=== PATIENT | female | born 1950 | race Caucasian/White ===

== ENCOUNTER → 2020-08-19 09:37 | Outpatient (BNVA) | payer MEDICARE, OTHER, SELFPAY | PROVIDERS: Visit Provider Surgery | DX: Z20.828 Contact with and (suspected) exposure to other viral communicable diseases (principal) | CPT/HCPCS: 87635 ==

== ENCOUNTER 2020-08-24 07:04 | Day surgery (SDC) | payer MEDICARE, OTHER, SELFPAY ==
[2020-08-22 10:47] VITALS: BMI 23.6
[2020-08-24 07:13] VITALS: BP 123/69; PULSE 93; RESP 18; TEMP 36.7; O2SAT 97
--- NOTE | 2020-08-24 07:31 | ANES.PREANE2 ---
Pre-Anesthetic Assessment Pre-Anesthetic Assessment: Height/Weight: Height 1.65 m Weight 64.41 kg Temp Pulse Resp BP Pulse Ox 98.0 F 93 18 123/69 97 08/24/20 07:13 08/24/20 07:13 08/24/20 07:13 08/24/20 07:13 08/24/20 07:13 Preop Diagnosis: Change in bowel movement Proposed Procedure: Operation Date: 08/24/20 08:00 Proposed Procedures p Colonoscopy 77211 R19.4(Not Applicable) - Jn Nowak MD Familial anesthetic complications: PONV Was Beta Glenn taken within 24 hours: N/A Last intake: Intake Last Liquid Date 08/23/20 Last Liquid Time 21:00 Last Solid Date 08/22/20 Last Solid Time 08:00 Social: Social History: No alcohol and No tobacco Exam: Pre-Anes Outpt Exam: alert, oriented x 3, clear to auscultation bilaterally and regular rate & rhythm Airway: Cervical ROM: WNL MP: 4 Dentition: Full GI: GI: GERD Metabolic: Metabolic: DM Musc/skel: Musc/skel: None reported Comments: R shoulder pain - will have patient get in comfortable position before starting anesthestic Anesthetic Plan: ASA status: 2 Anesthesia: MAC Risk of > 500 ml blood loss (7ml/kg in children): No PFSH Anesthesia PFSH: Family History Denies family history of Anesthesia complication Bleeding disorder Social History Smoking and tobacco status: never smoked Alcohol intake: never Adopted: No Caregiver/support person: Yes Lives independently: Yes Household members: spouse Housing: House Marital status: service: No Current occupational status: retired Current occupational exposures/hazards: No Pets and animals: No History of recent travel: No Sexually active: No Current gender identity: Female Fawn/Catholic: Mormonism Data Anesthesia Cardiac Studies: No Data to Display
[2020-08-24] MEDS: sodium chloride 0.9% 1,000 ML 30 ML IV (07:39)
[2020-08-24 07:43] LABS: Glucose Point of Care 166 mg/dL (70-110)
--- NOTE | 2020-08-24 07:55 | W.PM.OPSUD ---
Surgery/Procedure H&P Update DATE OF PROCEDURE: August 24, 2020 DATE H&P PERFORMED: 08/08/20 H&P UPDATE INFORMATION: I have reviewed H&P completed within last 30 days, I have examined patient prior to procedure and No changes to prior documentation PREOP DIAGNOSIS: Change in bowel movement PRIMARY INDICATION FOR PROCEDURE: The same PLANNED PROCEDURE: Operation Date: 08/24/20 08:00 Proposed Procedures p Colonoscopy 34669 R19.4(Not Applicable) - Jn Nowak MD
[2020-08-24 08:35] VITALS: BP 105/62; PULSE 73; RESP 16; TEMP 36.9; O2SAT 98
--- NOTE | 2020-08-24 09:24 | ANE.PACU2 ---
Inpatient post-anesthesia follow up: Airway intact: Yes Vital signs: Temperature 98.5 F Pulse Rate 73 Respiratory Rate 16 Blood Pressure 105/62 Pulse Oximetry 98 Oxygen Delivery Me thod Room Air Oxygen Flow Rate Fraction of Inspir ed Oxygen Hydration adequate: Yes Nausea and vomiting: No Mental status: Baseline
== END 2020-08-24 08:50 | disposition home or self-care (01) ==
PROVIDERS: PCP Registered Nurse; Visit Provider Surgery
PROC: 0DJD8ZZ Inspection of Lower Intestinal Tract, Via Natural or Artificial Opening Endoscopic (ICD-10-PCS; CPT 45378; principal; 2020-08-24 08:00)
DX: R19.4 Change in bowel habit (principal); D12.0 Benign neoplasm of cecum; K21.9 Gastro-esophageal reflux disease without esophagitis; E11.9 Type 2 diabetes mellitus without complications; Z79.82 Long term (current) use of aspirin
CPT/HCPCS: 12345; 36416; 45385; 82274; 82962; 83630; 87493; 87506; 88305; J2704; J7030

== ENCOUNTER 2020-09-02 08:04 | Outpatient (CLI) | payer MEDICARE, OTHER, SELFPAY ==
--- NOTE | 2020-09-02 09:30 | CT_ITS ---
WS: [id number] CT ABDOMEN AND PELVIS WITH CONTRAST HISTORY: cecal polyp TECHNIQUE: Imaging performed of the abdomen and pelvis with IV contrast. Single phase imaging of the abdomen. Coronal and sagittal reformats are submitted. All CT scans at [facility] use at least one of these dose optimization techniques: automated exposure control; mA and/or kV adjustment per patient size (includes targeted exams where dose is matched to clinical indication); or iterativ e reconstruction. IV CONTRAST: Visipaque 320; 95 mL IV. Oral contrast: Yes. DLP: 1032.68 mGycm COMPARISON: None available. Lower thorax: Lung bases are clear. Heart is normal size. Small hiatal hernia. Liver/biliary system: Normal size with no intrahepatic dilatation. Gallbladder: Normal. No gallstones or wall thickening. No pericholecystic fluid. Pancreas: Normal. Spleen: Normal. Adrenal glands: Normal. Right kidney: Normal. Left kidney: Normal. Aorta: Mild atherosclerosis with no aneurysm. Lymphadenopathy: None. Free fluid: None. GI tract: There is a large soft tissue mass centered in the cecum extending into the terminal ileum. Cecal component measures 1.8 x 1.7 cm. There is a contiguous component extending into the terminal il eum measuring 4.1 x 2.3 cm. There is an adjacent biopsy clip. There is a suspicious mass also present involving the distal small bowel in the RIGHT lower quadrant. On image 72 of series 2 is a mildly va scular hyperdense nodule measuring 1.4 x 2.6 cm. On the coronal imaging there appears to be a strictu re in this location and there is mild proximal small bowel dilatation. Appendix is been removed. Diomedes tional postbiopsy clip noted in the region of the proximal descending colon. Abdominal wall: Umbilical hernia contains fat only. Pelvis: Prior hysterectomy. No pelvic mass or ascites. Urinary bladder is minimally distended. Bones: Degenerative spondylitic changes in the lumbar spine. CT/CT abdomen pelvis w con* [id number] IMPRESSION: 1. Large polypoid mass centered in the cecum and distal terminal ileum as desc ribed above. Suspicious for neoplasm. 2. Additional distal small bowel stricture and mass measures 1.4 x 2.6 cm. Annabelle picious for neoplasm until proven otherwise. This mass and stricture resulting in a mild proximal small bowel obstruction.
[2020-09-02] MEDS: iohexol 300 mg/mL 50 mL Btl PO (10:27)
[2020-09-02] MEDS: iodixanol 320 mg/mL 100mL Btl IV (10:27)
[2020-09-02 11:15] LABS: Carcinoembryonic Antigen 0.7 ng/mL (0.0-4.7)
== END 2020-09-02 08:05 | disposition home or self-care (01) ==
LOC: RADWPI 08:13
PROVIDERS: PCP Registered Nurse; Visit Provider Surgery
DX: K63.5 Polyp of colon (principal); K56.609 Unspecified intestinal obstruction, unspecified as to partial versus complete obstruction
CPT/HCPCS: 74177; 82378; Q9967

== ENCOUNTER → 2020-09-09 10:36 | Outpatient (BNVA) | payer MEDICARE, OTHER, SELFPAY | PROVIDERS: PCP Registered Nurse; Visit Provider Surgery | DX: Z11.59 Encounter for screening for other viral diseases (principal); K63.89 Other specified diseases of intestine | CPT/HCPCS: 87635 ==

== ENCOUNTER 2020-09-13 08:31 | Inpatient (IN) | payer MEDICARE, OTHER, SELFPAY ==
[2020-09-12 09:18] VITALS: BMI 23.3
[2020-09-13] VITALS (19 sets, daily range): BP systolic 112–147; BP diastolic 67–82; PULSE 71–102; RESP 15–20; TEMP 36.3–37.2; O2SAT 90–100
--- NOTE | 2020-09-13 06:27 | W.PM.OPSUD ---
Surgery/Procedure H&P Update DATE OF PROCEDURE: September 13, 2020 DATE H&P PERFORMED: 09/05/20 H&P UPDATE INFORMATION: I have reviewed H&P completed within last 30 days, I have examined patient prior to procedure and No changes to prior documentation PREOP DIAGNOSIS: Cecal mass PRIMARY INDICATION FOR PROCEDURE: The same PLANNED PROCEDURE: Operation Date: 09/13/20 07:00 Proposed Procedures p Laparoscopic poss Open Right Hemicolectomy 80247 K63.89(Right) - Jn Nowak MD
[2020-09-13] MEDS: heparin 5,000 unit/mL INJ 1 mL 3000 UNIT SUBCUT (06:32)
--- NOTE | 2020-09-13 06:34 | ANES.PREANE2 ---
Pre-Anesthetic Assessment Pre-Anesthetic Assessment: Height/Weight: Height 1.65 m Weight 63.503 kg Temp Pulse Resp BP Pulse Ox 97.7 F 102 H 20 H 125/76 97 09/13/20 06:14 09/13/20 06:14 09/13/20 06:14 09/13/20 06:14 09/13/20 06:14 Preop Diagnosis: Cecal mass Proposed Procedure: Operation Date: 09/13/20 07:00 Proposed Procedures p Laparoscopic poss Open Right Hemicolectomy 11564 K63.89(Right) - Jn Nowak MD Familial anesthetic complications: PONV Was Beta Glenn taken within 24 hours: N/A Last intake: Intake Last Liquid Date 09/12/20 Last Liquid Time 22:00 Last Solid Date 09/11/20 Last Solid Time 23:59 Social: Social History: No alcohol and No tobacco Exam: Pre-Anes Outpt Exam: alert, oriented x 3, clear to auscultation bilaterally and regular rate & rhythm Airway: Cervical ROM: WNL MP: 3 Dentition: Full GI: GI: GERD Metabolic: Metabolic: DM and Thyroid Musc/skel: Comments: R shoulder blade pain after rotator cuff surgery (would avoid shoulder blades) Neuropsych: Neuropsych: None reported Anesthetic Plan: ASA status: 2 Anesthesia: General Risk of > 500 ml blood loss (7ml/kg in children): No PFSH Anesthesia PFSH: Medical History (Updated 09/05/20 @ 15:10 by Jn Nowak MD) Cecal polyp Family History Denies family history of Anesthesia complication Bleeding disorder Social History Smoking and tobacco status: never smoked Alcohol intake: never Lives independently: Yes Household members: spouse Marital status: Current occupational status: retired History of recent travel: No Sexually active: No Current gender identity: Female Fawn/Sabianism: Denominational Data Anesthesia Cardiac Studies: No Data to Display
[2020-09-13] MEDS: sodium chloride 0.9% 1,000 ML 30 ML IV (06:37)
[2020-09-13 06:42] LABS: Glucose Point of Care 161 mg/dL (70-110)
--- NOTE | 2020-09-13 06:49 | PC.NURSE ---
CLOTHING SENT WITH FAMILY. PURSE WITH PHONE AND GLASSES SENT TO PACU
[2020-09-13] MEDS: cefTRIAXone 1,000 MG in sodium chloride 0.9% (plus) 50 ML 100 MG IV (07:00)
--- NOTE | 2020-09-13 10:44 | PM.OP ---
Operative Report Date of procedure: September 13, 2020 Pre-op Diagnosis: Cecal mass and concern of small bowel stricture Post-op diagnosis: other (Cecal mass and no evidence of small bowel pathology) Post-op Findings: Absence of any small bowel strictures or masses Procedure Done: Laparoscopic right hemicolectomy Specimens removed/disposition: Right hemicolectomy Staple line status post ileocolic anastomosis [id number] Surgeon: Jn Nowak Locomotive Firer: Surgical mary Guevara Circulating nurse Adela Anesthesia: General (Mari Corado and Dr. 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 I elected to perform a CT scan of the abdomen and pelvis that showed concern of a cecal mass reaching to the terminal ileum and another potential associated small bowel stricture without definite determination of the location. After thorough history physical examination reviewing the chart and images with my personal interpretation I did cruise counselor the patient for laparoscopic right hemicolectomy possible open. Patient agreed to proceed Informed consent per chart Procedure: Patient was identified in the holding area,then was was taken to the operating room and placed in a supine position under general anesthesia Time-out was done verifying the patient's name/date of /planned procedure and destination after the procedure, all were in agreement. SCDs confirmed to be functioning, preoperative antibiotics administered per protocol, and beta jenny protocol was confirmed. Heparin subcutaneous was given as prophylactic prior to surgery A Ross catheter was placed and the abdomen was prepped and draped in a sterile manner. A 2 cm midline supraumbilical incision was made and using open Cramer trocar technique was placed and 15 mm of pneumoperitoneum was created. 10 mm 0 degree scope was introduced was no evidence of bleeding or injury. The scope was then switched to a 10 mm 30? scope A 5 mm port was placed in the left lower quadrant and another 5 mm port was placed in the left upper quadrant under direct visualization. The patient was placed in Trendelenburg position and steep tilt to the left placing the small bowel in the left side within the peritoneal cavity and the transverse colon was retracted superiorly. There was no evidence of ascites or peritoneal carcinomatosis or liver deposits. . The cecum was retracted laterally and the tenting of the ileocolic pedicle was noted. The peritoneum overlying the pedicle was opened and a window created posterior to the pedicle just lateral to the third portion of the duodenum. Dissection was carried superiorly lateral to the duodenum along the avascular plane. Using harmonic scalpel I skeletonized the ileocolic pedicle then a vascular load was applied using [place] stapler 45 mm. The avascular plane was dissected laterally towards the right paracolic gutter and superiorly towards the hepatic flexure.The transverse mesocolon was divided using harmonic scalpel and this was continued medially. The anterior leaflet of the greater omentum was divided near the midpoint of the transverse colon to enter the lesser sac. The greater omentum was divided using harmonic scalpel and the hepatic flexure was taken down. The dissection was carried along the line of Toldt until the ascending colon and down to ileum to completely free it up. There were some adhesions towards the terminal ileum were taken down as well. The right ureter was identified and safeguarded. The mesentery of the terminal ileum was divided using harmonic scalpel . At this point the pneumoperitoneum was released and the mobilized colon and small bowel was exteriorized through the supraumbilical incision which had been extended cephalad and caudad and a wound protector had been placed, the dissected part of the colon was delivered. application of 75 mm blue load onto the terminal ileum and division well as on the proximal part of transverse colon with safety margin away from the tumor ,specimen was now passed to the circulating nurse. At this point I did deliver out the remaining of the small bowel run the small bowel all the way to the ligament of Treitz and there was no evidence of small bowel masses or strictures or any pathological entities that uniquely appreciated, small bowel were placed back in order followed by that a [id number] anastomosis between the ileum and the proximal transverse colon was created after placement of stay sutures 3-0 silk, enterotomies were created. Interrupted 3-0 silk suture were placed to approximate the ileum to the transverse colon and y enterotomies were created on the transverse colon and small bowel and and 75 mm blue load ELIZABETH stapler was introduced and fired creating a [id number] stapled anastomosis. There was no bleeding noted from the staple line and enterotomies were grasped and additional blue load was applied to leave behind the staple line that was sent separately for permanent pathology and multiple 3-0 silk sutures were applied at the edges and the intersection of the staple line for hemostasis. The bowel was then returned smoothly to the abdominal cavity At this point the GelPort was placed to have adequate sealing, pneumoperitoneum was introduced final look laparoscopy was done and irrigation followed by suction was achieved. There was some oozing from the retroperitoneum and 5 mm clips were applied Bilateral TAP (transversus abdominous plain peripheral nerve block )block using Exparel 20 mL Exparel 40 ml Normal saline 20 ml bupivacaine 0.25% 30 mL on each side injected 20 mL injected the port sites All ports were removed and there was no bleeding noted from the port sites. The midline fascia closed using PDS suture followed by thorough irrigation then 4-0 Monocryl used to close the skin incision and all other trocar sites were closed by same fashion. Count was completed for instruments, needles and sponges at the end of the procedure The patient is transferred to the recovery room after extubated in stable condition with a Ross catheter I Was present for the whole entire procedure
--- NOTE | 2020-09-13 11:40 | PM.PACU ---
PACU note Post-Anesthesia Exam: awake and vital signs stable Disposition: admitted
[2020-09-13] MEDS: morphine 4 mg/mL SDV 1 mL IVP ×2 (13:21→18:08)
[2020-09-13] MEDS: lactated ringers 1,000 ML 125 ML IV ×2 (13:23→21:07)
[2020-09-13] MEDS: famotidine 20 mg/2 mL INJ IVP ×2 (13:25→22:50)
[2020-09-13 17:52] LABS: Glucose Point of Care 258 mg/dL (70-110)
[2020-09-13 21:21] LABS: Glucose Point of Care 208 mg/dL (70-110)
[2020-09-14] VITALS (9 sets, daily range): BP systolic 99–157; BP diastolic 57–91; PULSE 77–108; RESP 16–20; TEMP 36.8–37.2; O2SAT 91–97
[2020-09-14] MEDS: morphine 4 mg/mL SDV 1 mL IVP ×2 (01:50→15:25)
[2020-09-14 02:51] LABS: Hematocrit 40.5 % (37.0-47.0); Hemoglobin 13.1 g/dL (11.5-15.3)
[2020-09-14 03:32] LABS: Anion Gap 14.3 (5-19); Blood Urea Nitrogen 7 mg/dL (8-23); Calcium 8.4 mg/dL (8.5-10.5); Carbon Dioxide 21 mmol/L (22-29); Chloride 105 mmol/L (98-107); Creatinine Clr Calc Pharmacy 59.8081; Glucose 185 mg/dL (65-115); Osmolality Calculated 285 mOsm/kg (285-295); Potassium 4.3 mmol/L (3.5-5.1); Sodium 136 mmol/L (136-145)
[2020-09-14] MEDS: heparin 5,000 unit/mL INJ 1 mL 5000 UNIT SUBCUT ×2 (05:45→18:17)
--- NOTE | 2020-09-14 06:11 | P.PN_ITS ---
Subjective Subjective: Interval history: Patient overall feels well did not pass gas yet. No acute events overnight Good urine output Vitals/I&O/Wt Last Vital Signs Temp 98.4 F 09/14/20 01:10 Pulse 78 09/14/20 01:10 Resp 18 09/14/20 01:50 BP 120/60 09/14/20 01:44 Pulse Ox 92 09/14/20 01:10 09/13/20 09/13/20 09/14/20 14:59 22:59 06:59 Intake Total 1050 / 1050 1066.667 / 2116.667 0 / 2116.667 Output Total 1130 / 1130 900 / 2029 Balance -80 / -80 1066.667 / 986.667 -900 / 86.667 Weight last 48 hrs Weight 140 lb Physical Exam Narrative: EXAM NARRATIVE: Patient is conscious alert oriented X3 BMI 23 Head and neck examination PERRLA no masses no cervical lymphadenopathy no jaundice Cardiac examination audible S1-S2 no murmurs no gallops no arrhythmias Chest is clear bilateral,abscence of Rhonchi or wheezes,no surgical emphysema Abdomen nontender except at the incision site nondistended soft no organomegaly guarding or rigidity/no signs of peritonitis Ross catheter in place with clear urine Extremities no cyanosis no clubbing no edema Urinary Catheter Management^: Ross: Cath Placed During This Visit: yes Reason for Continuing Indwelling Catheter: Required Immobilization for Trauma or Surgery or Anesthesia Urinary Catheter Date of Insertion: 09/13/20 Urinary Catheter Time of Insertion: 07:18 Data : 09/14/20 02:29 09/14/20 02:29 A&P Assessment and plan (1) Cecum mass: Patient is a status post laparoscopic right hemicolectomy 09/13/2020 We will start the patient slowly on popsicle Awaiting bowel function We will continue Ross catheter for appropriate urine output monitoring Courage ambulation and incentive spirometer Assurance and education All questions have been answered and all concerns have been addressed to patient's satisfaction. Status: Acute Attestations Medical Necessity Statement*: Patient will require inpatient hospitalization past 2 midnights still awaiting bowel functions Time Spent in Patient Care: (>than 50% of time spent in counselling and/or direct pt care on unit) . Coding Level of Care Code Acute Mass Communications Instructor for Chg Fwd Diagnoses Cecum mass K63.89
[2020-09-14] MEDS: lactated ringers 1,000 ML 125 ML IV ×2 (06:29→15:26)
[2020-09-14 06:40] LABS: Glucose Point of Care 156 mg/dL (70-110)
--- NOTE | 2020-09-14 10:26 | ANE.PACU2 ---
Inpatient post-anesthesia follow up: Airway intact: Yes Vital signs: Temperature 98.4 F Pulse Rate 77 Respiratory Rate 16 Blood Pressure 120/60 Pulse Oximetry 97 Oxygen Delivery Me thod Room Air Oxygen Flow Rate 2 Fraction of Inspir ed Oxygen Hydration adequate: Yes Nausea and vomiting: No Pain level: 1 Mental status: Baseline
[2020-09-14 11:01] LABS: Glucose Point of Care 183 mg/dL (70-110)
[2020-09-14] MEDS: famotidine 20 mg/2 mL INJ IVP ×2 (11:19→22:12)
[2020-09-14 17:27] LABS: Glucose Point of Care 159 mg/dL (70-110)
--- NOTE | 2020-09-14 19:49 | PC.NURSE ---
summary Pt has walked twice today and has sat up in chair for several hours today and has done well. Pt was mediated with pain meds twice. No c/o nausea. No bowel sounds and not passing gas. Pt has been feeling gas pains though. Very pleasant pt.
[2020-09-14 21:32] LABS: Glucose Point of Care 149 mg/dL (70-110)
[2020-09-15] VITALS (8 sets, daily range): BP systolic 112–122; BP diastolic 60–70; PULSE 70–83; RESP 15–20; TEMP 36.9–37; O2SAT 90–94
[2020-09-15] MEDS: lactated ringers 1,000 ML 125 ML IV ×4 (00:56→23:17)
[2020-09-15 03:16] LABS: Hemoglobin 11.4 g/dL (11.5-15.3)
[2020-09-15 03:40] LABS: Anion Gap 11.3 (5-19); Blood Urea Nitrogen 7 mg/dL (8-23); Calcium 8.2 mg/dL (8.5-10.5); Carbon Dioxide 25 mmol/L (22-29); Chloride 104 mmol/L (98-107); Creatinine Clr Calc Pharmacy 59.8081; Glucose 142 mg/dL (65-115); Osmolality Calculated 284 mOsm/kg (285-295); Potassium 3.3 mmol/L (3.5-5.1); Sodium 137 mmol/L (136-145)
[2020-09-15] MEDS: morphine 4 mg/mL SDV 1 mL IVP ×3 (04:38→15:46)
--- NOTE | 2020-09-15 05:30 | P.PN_ITS ---
Subjective Subjective: Interval history: Patient overall is doing well left with sore at the incision sites. Good urine output No acute events overnight Still did not pass gas yet Vitals/I&O/Wt Last Vital Signs Temp 98.4 F 09/15/20 05:18 Pulse 70 09/15/20 05:18 Resp 18 09/15/20 05:18 BP 121/60 09/15/20 05:18 Pulse Ox 91 09/15/20 05:18 09/14/20 09/14/20 09/15/20 14:59 22:59 06:59 Intake Total 100 / 100 1100 / 1200 1000 / 2200 Output Total 800 / 800 Balance 100 / 100 300 / 400 1000 / 1400 Physical Exam Narrative: EXAM NARRATIVE: Patient is conscious alert oriented X3 BMI 23 Head and neck examination PERRLA no masses no cervical lymphadenopathy no jaundice Abdomen nontender except at the incision site nondistended soft no organomegaly guarding or rigidity/no signs of peritonitis/incisions are c,d and intact Ross catheter in place with clear urine Extremities no cyanosis no clubbing no edema Urinary Catheter Management^: Ross: Cath Placed During This Visit: yes Reason for Continuing Indwelling Catheter: Perioperative Use in Selected Surgeries Urinary Catheter Date of Insertion: 09/13/20 Urinary Catheter Time of Insertion: 07:18 Data : 09/15/20 02:37 09/15/20 02:37 A&P Assessment and plan (1) Cecum mass: Patient is a status post laparoscopic right hemicolectomy 09/13/2020 Continue popsicles Awaiting bowel functions DC Ross catheter Stop Heparin due to slight drift in H&H yet we will continue SCDs Hypokalemia we will plan for potassium replacement EnCourage ambulation and incentive spirometer Pending pathology to follow on results Assurance and education All questions have been answered and all concerns have been addressed to patient's satisfaction. Status: Acute Attestations Medical Necessity Statement*: Patient will continue inpatient admission past 2 midnights for awaiting bowel functions, pain control and correction of elect rolytes. Time Spent in Patient Care: (>than 50% of time spent in counselling and/or direct pt care on unit) . Coding Level of Care Code Acute Plant Sprayer for Niraj Oliver Diagnoses Cecum mass K63.89
[2020-09-15] MEDS: heparin 5,000 unit/mL INJ 1 mL 5000 UNIT SUBCUT (06:02)
[2020-09-15] MEDS: potassium chloride premix 100 ML 25 MEQ IV (06:03)
[2020-09-15 07:13] LABS: Glucose Point of Care 141 mg/dL (70-110)
[2020-09-15 10:58] LABS: Glucose Point of Care 140 mg/dL (70-110)
[2020-09-15] MEDS: famotidine 20 mg/2 mL INJ IVP ×2 (11:46→22:16)
[2020-09-15 16:41] LABS: Glucose Point of Care 116 mg/dL (70-110)
[2020-09-15 20:49] LABS: Glucose Point of Care 164 mg/dL (70-110)
[2020-09-16 00:40] VITALS: BP 130/67; PULSE 77; RESP 20; TEMP 36.7; O2SAT 95
[2020-09-16 02:45] LABS: Anion Gap 13.6 (5-19); Blood Urea Nitrogen 6 mg/dL (8-23); Calcium 8.7 mg/dL (8.5-10.5); Carbon Dioxide 23 mmol/L (22-29); Chloride 100 mmol/L (98-107); Creatinine Clr Calc Pharmacy 59.8081; Glucose 140 mg/dL (65-115); Hematocrit 35.6 % (37.0-47.0); Hemoglobin 11.9 g/dL (11.5-15.3); Osmolality Calculated 276 mOsm/kg (285-295); Potassium 3.6 mmol/L (3.5-5.1); Sodium 133 mmol/L (136-145)
[2020-09-16 04:23] VITALS: BP 125/68; PULSE 80; RESP 24; TEMP 37.1; O2SAT 92
--- NOTE | 2020-09-16 06:07 | P.PN_ITS ---
Subjective Subjective: Interval history: Patient did not pass gas yet. But overall requires less pain IV medication, blood glucose under control. Vitals/I&O/Wt Last Vital Signs Temp 98.7 F 09/16/20 04:23 Pulse 80 09/16/20 04:23 Resp 24 H 09/16/20 04:23 BP 125/68 09/16/20 04:23 Pulse Ox 92 09/16/20 04:23 09/15/20 09/15/20 09/16/20 14:59 22:59 06:59 Intake Total 835.417 / 611.202 2751 / 1835.417 952.083 / 2787.500 Output Total 1350 / 1350 1100 / 2450 Balance 835.417 / 835.417 -350 / 485.417 -147.917 / 337.500 Physical Exam Narrative: EXAM NARRATIVE: Patient is conscious alert oriented X3 BMI 23 Head and neck examination PERRLA no masses no cervical lymphadenopathy no jaundice Abdomen nontender nondistended soft no organomegaly guarding or rigidity/no signs of peritonitis Incisions are clean dry and intact and I noticed some bruise at the suprapubic region yet stable. Bowel sounds are active Extremities no cyanosis no clubbing no edema Urinary Catheter Management^: Ross: Cath Placed During This Visit: yes, but has since been removed by the nurse Reason for Continuing Indwelling Catheter: Perioperative Use in Selected Surg eries Urinary Catheter Date of Insertion: 09/13/20 Urinary Catheter Time of Insertion: 07:18 Date Urinary Catheter Removed: 09/15/20 Time Urinary Catheter Discontinued: 06:40 Data : 09/16/20 02:12 09/16/20 02:12 A&P Assessment and plan (1) Cecum mass: Patient is a status post laparoscopic right hemicolectomy 09/13/2020 Continue popsicles Awaiting bowel functions, once patient passes gas we will start her slowly on clear liquid diet Will switch to D5 half-normal +20 KCl at 100 mL/h and DC LR DC telemetry EnCourage ambulation and incentive spirometer Pending pathology final results Assurance and education All questions have been answered and all concerns have been addressed to patient's satisfaction. Status: Acute Attestations Medical Necessity Statement*: Patient requiring inpatient hospitalization past 2 midnights, awaiting bowel functions. Time Spent in Patient Care: (>than 50% of time spent in counselling and/or d irect pt care on unit) . Coding Level of Care Code Acute Investigator Claims for Chg Fwd Diagnoses Cecum mass K63.89
[2020-09-16] MEDS: D5-NS 0.45% + KCL 20 mEq 20 MEQ/1,000 ML BAG 100 MEQ IV ×2 (06:36→17:13)
[2020-09-16 07:13] LABS: Glucose Point of Care 141 mg/dL (70-110)
[2020-09-16 07:45] VITALS: BP 121/70; PULSE 76; RESP 17; TEMP 36.6; O2SAT 96
[2020-09-16] MEDS: famotidine 20 mg/2 mL INJ IVP ×2 (10:36→22:52)
[2020-09-16 10:46] LABS: Glucose Point of Care 167 mg/dL (70-110)
[2020-09-16 11:42] VITALS: BP 116/61; PULSE 76; RESP 20; TEMP 36.9; O2SAT 96
--- NOTE | 2020-09-16 12:33 | DCPLANNER ---
Pg 2 of IM updated and reviewed with pt. No questions, copy provided.
[2020-09-16 16:00] VITALS: BP 122/68; PULSE 84; RESP 18; TEMP 37; O2SAT 96
[2020-09-16 17:08] LABS: Glucose Point of Care 166 mg/dL (70-110)
[2020-09-16 20:00] VITALS: BP 104/53; PULSE 72; RESP 17; TEMP 36.7; O2SAT 96
[2020-09-16 21:10] LABS: Anion Gap 13.7 (5-19); Blood Urea Nitrogen 5 mg/dL (8-23); Calcium 8.6 mg/dL (8.5-10.5); Carbon Dioxide 23 mmol/L (22-29); Chloride 100 mmol/L (98-107); Creatinine Clr Calc Pharmacy 59.8081; Glucose 193 mg/dL (65-115); Osmolality Calculated 279 mOsm/kg (285-295); Potassium 3.7 mmol/L (3.5-5.1); Sodium 133 mmol/L (136-145)
[2020-09-16 21:58] LABS: Glucose Point of Care 195 mg/dL (70-110)
[2020-09-17] VITALS: BP 102/63; PULSE 77; RESP 18; TEMP 36.9; O2SAT 92
[2020-09-17] MEDS: D5-NS 0.45% + KCL 20 mEq 20 MEQ/1,000 ML BAG 100 MEQ IV ×2 (02:34→12:31)
[2020-09-17 03:44] VITALS: BP 110/65; PULSE 74; RESP 18; TEMP 36.7; O2SAT 94
[2020-09-17 06:42] LABS: Glucose Point of Care 197 mg/dL (70-110)
--- NOTE | 2020-09-17 07:16 | P.PN_ITS ---
Subjective Subjective: Interval history: Patient overall is about the same, did not pass gas yet. Pain is under control Vitals/I&O/Wt Last Vital Signs Temp 98.1 F 09/17/20 03:44 Pulse 74 09/17/20 03:44 Resp 18 09/17/20 03:44 BP 110/65 09/17/20 03:44 Pulse Ox 94 09/17/20 03:44 09/16/20 09/17/20 09/17/20 22:59 06:59 14:59 Intake Total 1000 / 1000 935 / 1935 Output Total 280 / 1280 300 / 1580 Balance 720 / -280 635 / 355 Physical Exam Narrative: EXAM NARRATIVE: Patient is conscious alert oriented X3 BMI 23 Head and neck examination PERRLA no masses no cervical lymphadenopathy no jaundice Cardiac examination audible S1-S2 no murmurs no gallops no arrhythmias Chest is clear bilateral,abscence of Rhonchi or wheezes,no surgical emphysema Abdomen nontender nondistended soft no organomegaly guarding or rigidity/no signs of peritonitis Incisions are clean dry intact and mild bruise at the suprapubic region. Stable Bowel sounds are active Extremities no cyanosis no clubbing no edema Urinary Catheter Management^: Ross: Cath Placed During This Visit: yes, but has since been removed by the nurse Reason for Continuing Indwelling Catheter: Perioperative Use in Selected Surgeries Urinary Catheter Date of Insertion: 09/13/20 Urinary Catheter Time of Insertion: 07:18 Date Urinary Catheter Removed: 09/15/20 Time Urinary Catheter Discontinued: 06:40 Data : 09/16/20 02:12 09/17/20 09:20 A&P Assessment and plan (1) Cecum mass: Patient is a status post laparoscopic right hemicolectomy 09/13/2020 We will start the patient slowly on clear liquid diet Continue D5 half-normal +20 KCl at 100 mL/h and DC LR EnCourage ambulation and incentive spirometer On evening rounds at 4 PM Patient reports that she had a bowel movement and pass gas We will plan to continue clear liquid diet and have the patient have Glucerna with chocolate flavor 1 with each meal and will plan for potential discharge home tomorrow Assurance and education All questions have been answered and all concerns have been addressed to patient's satisfaction. Status: Acute Attestations Medical Necessity Statement*: Patient requiring inpatient hospitalization past 2 midnights, awaiting bowel functions. Time Spent in Patient Care: (>than 50% of time spent in counselling and/or direct pt care on unit) . Coding Level of Care Code Acute Business Analysis Consultant for Chg Fwd Diagnoses Cecum mass K63.89
[2020-09-17 08:16] VITALS: BP 116/71; PULSE 76; RESP 18; TEMP 36.9; O2SAT 95
[2020-09-17 09:54] LABS: Anion Gap 13.1 (5-19); Blood Urea Nitrogen 4 mg/dL (8-23); Calcium 8.8 mg/dL (8.5-10.5); Carbon Dioxide 24 mmol/L (22-29); Chloride 101 mmol/L (98-107); Creatinine Clr Calc Pharmacy 59.8081; Glucose 265 mg/dL (65-115); Osmolality Calculated 284 mOsm/kg (285-295); Potassium 4.1 mmol/L (3.5-5.1); Sodium 134 mmol/L (136-145)
[2020-09-17 12:00] LABS: Glucose Point of Care 218 mg/dL (70-110)
[2020-09-17] MEDS: famotidine 20 mg/2 mL INJ IVP (12:30)
[2020-09-17 12:37] VITALS: BP 106/67; PULSE 73; RESP 18; TEMP 37.1; O2SAT 96
[2020-09-17 15:46] VITALS: BP 108/67; PULSE 79; RESP 18; TEMP 37.1; O2SAT 96
--- NOTE | 2020-09-17 16:09 | P.DS_ITS ---
Discharge Providers Date of Admission: 09/13/20 08:31 Date of Discharge: September 17, 2020 Attending Provider at Admission: Jn Nowak MD Attending Provider at Discharge: Jn Nowak MD Primary Care Provider: LAWANDA Yu Diagnoses at Discharge Discharge Diagnosis (1) Cecum mass: Status: Resolved Reason for Visit Reason for Visit: Cecum Mass Physical Exam Narrative: EXAM NARRATIVE: EXAM NARRATIVE: Patient is conscious alert oriented X3 BMI 23 Head and neck examination PERRLA no masses no cervical lymphadenopathy no jaundice Cardiac examination audible S1-S2 no murmurs no gallops no arrhythmias Chest is clear bilateral,abscence of Rhonchi or wheezes,no surgical emphysema Abdomen nontender nondistended soft no organomegaly guarding or rigidity/no signs of peritonitis Incisions are clean dry intact and mild bruise at the suprapubic region. Stable Bowel sounds are active Extremities no cyanosis no clubbing no edema Urinary Catheter Management^: Ross: Cath Placed During This Visit: yes, but has since been removed by the nurse Reason for Continuing Indwelling Catheter: Perioperative Use in Selected [place] rgeries Urinary Catheter Date of Insertion: 09/13/20 Urinary Catheter Time of Insertion: 07:18 Date Urinary Catheter Removed: 09/15/20 Time Urinary Catheter Discontinued: 06:40 Discharge Data Data Completed and Pending: Pending at discharge Category Date Time Status ES surgery / GI i mages Routine Exams 09/13/20 06:51 Taken Pathology: Surgic al [PTH] Routine Pth 09/13/20 10:49 Received Labs from last 24 hours 09/17/20 09/17/20 09/17/20 11:00 09:20 06:39 Sodium 134 L Potassium 4.1 Chloride 101 Carbon Dioxide 24 Anion Gap 13.1 BUN 4 L Creatinine 0.6 GFR Calculation Not Reportable Glucose 265 H POC Glucose 218 197 Calculated Osmolal ity 284 L Calcium 8.8 09/16/20 09/16/20 09/16/20 21:54 20:09 16:51 Sodium 133 L Potassium 3.7 Chloride 100 Carbon Dioxide 23 Anion Gap 13.7 BUN 5 L Creatinine 0.5 GFR Calculation Not Reportable Glucose 193 H POC Glucose 195 166 Calculated Osmolal ity 279 L Calcium 8.6 Vitals: Last Vital Signs Temp 98.8 F 09/17/20 15:46 Pulse 79 09/17/20 15:46 Resp 18 09/17/20 15:46 BP 108/67 09/17/20 15:46 Pulse Ox 96 09/17/20 15:46 Discharge Plan Discharge Patient Disposition: Home Condition: Stable Prescriptions: [place] 5-325 mg tablet 1 tab PO Q6H PRN (Reason: pain) Qty: 28 RF: 0 Continued glimepiride 2 mg tablet 2 mg PO DAILY RF: 0 omeprazole 20 mg capsule,delayed release(DR/EC) 20 mg PO BID RF: 0 loratadine 10 mg capsule 10 mg PO DAILY RF: 0 metformin 1,000 mg tablet 1,000 mg PO DAILY RF: 0 calcium carbonate 600 mg calcium (1,500 mg) tablet 1,200 mg PO DAILY RF: 0 levothyroxine 50 mcg capsule 50 mcg PO DAILY RF: 0 Discontinued erythromycin 500 mg tablet 500 mg PO DAILY Qty: 3 RF: 0 neomycin 500 mg tablet 1 gm PO ONCE Qty: 6 RF: 0 Discharge Orders: Discharge Order (Routine); Ordered 09/17/20 Ordered By: Jn Nowak Referrals: Jn Nowak MD [Physician] - (Return to surgery office this coming ) Discharge Diet: As Directed Discharge Activity: Limit activity as instructed Activity Restrictions/Additional Instructions: 1. Patient can shower after 48 hours from surgery 2. Remove Dermabond 7 to 10 days after surgery, if there is a secondary dressing can take down after 48 hours. 3. Up and walking as tolerated 4. Do lift more than 5 pounds first 2 weeks after surgery and not more than 25 pounds 6 to 8 weeks after surgery. 5. Do not operate heavy machinery or drive while using pain medications. 6.Contact the office or return to the ER for worsening nausea vomiting fevers or chills, or noticing any redness around incision sites or discharge. Discharge Attestations Time Spent in Discharge Care*: less than 30 min Quality Metrics Clinical Quality Measures During this hospital stay, did patient experience: None Coding Level of Care Code Acute Exploration Driller for Niraj Oliver Diagnoses Cecum mass K63.89
--- NOTE | 2020-09-17 16:14 | PM.DCS ---
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 On a colonoscopy that was done initially for diarrhea. Patient overall did well during her postoperative course continued to have stable vital signs and good urine output. Started to have bowel sounds and tolerated clear liquid diet in the interim she had a bowel movement and passing gas. Patient's pain has been under control and she met the criteria for discharge today. We will plan to have the patient on clear liquid diet for the coming 2448 hrs. then advance as tolerated. Plan to return to surgery office in 1 week. Physical Exam Narrative: EXAM NARRATIVE: Patient is conscious alert oriented X3 BMI 23 Head and neck examination PERRLA no masses no cervical lymphadenopathy no jaundice Abdomen nontender nondistended soft no organomegaly guarding or rigidity/no signs of peritonitis Incisions are clean dry intact and mild bruise at the suprapubic region Stable Bowel sounds are active Extremities no cyanosis no clubbing no edema Urinary Catheter Management^: Ross: Cath Placed During This Visit: yes, but has since been removed by the nurse Reason for Continuing Indwelling Catheter: Perioperative Use in Selected Surgeries Urinary Catheter Date of Insertion: 09/13/20 Urinary Catheter Time of Insertion: 07:18 Date Urinary Catheter Removed: 09/15/20 Time Urinary Catheter Discontinued: 06:40 Discharge Data Data Completed and Pending: Pending at discharge Category Date Time Status ES surgery / GI i mages Routine Exams 09/13/20 06:51 Taken Pathology: Surgic al [PTH] Routine Pth 09/13/20 10:49 Received Labs from last 24 hours 09/17/20 09/17/20 09/17/20 11:00 09:20 06:39 Sodium 134 L Potassium 4.1 Chloride 101 Carbon Dioxide 24 Anion Gap 13.1 BUN 4 L Creatinine 0.6 GFR Calculation Not Reportable Glucose 265 H POC Glucose 218 197 Calculated Osmolal ity 284 L Calcium 8.8 1009/16/20 09/16/20 21:54 20:09 16:51 Sodium 133 L Potassium 3.7 Chloride 100 Carbon Dioxide 23 Anion Gap 13.7 BUN 5 L Creatinine 0.5 GFR Calculation Not Reportable Glucose 193 H POC Glucose 195 166 Calculated Osmolal ity 279 L Calcium 8.6 Vitals: Last Vital Signs Temp 98.8 F 09/17/20 15:46 Pulse 79 09/17/20 15:46 Resp 18 09/17/20 15:46 BP 108/67 09/17/20 15:46 Pulse Ox 96 09/17/20 15:46 Discharge Plan Discharge Patient Disposition: Home Condition: Stable Prescriptions: [place] 5-325 mg tablet 1 tab PO Q6H PRN (Reason: pain) Qty: 28 RF: 0 Continued glimepiride 2 mg tablet 2 mg PO DAILY RF: 0 omeprazole 20 mg capsule,delayed release(DR/EC) 20 mg PO BID RF: 0 loratadine 10 mg capsule 10 mg PO DAILY RF: 0 metformin 1,000 mg tablet 1,000 mg PO DAILY RF: 0 calcium carbonate 600 mg calcium (1,500 mg) tablet 1,200 mg PO DAILY RF: 0 levothyroxine 50 mcg capsule 50 mcg PO DAILY RF: 0 Discontinued erythromycin 500 mg tablet 500 mg PO DAILY Qty: 3 RF: 0 neomycin 500 mg tablet 1 gm PO ONCE Qty: 6 RF: 0 Discharge Orders: Discharge Order (Routine); Ordered 09/17/20 Ordered By: Jn Nowak Referrals: Jn Nowak MD [Physician] - (Return to surgery office this coming ) Discharge Diet: As Directed Discharge Activity: Limit activity as instructed Patient Instructions: Hydrocodone/Acetaminophen (By mouth), Colectomy (DC) Activity Restrictions/Additional Instructions: 1. Patient can shower after 48 hours from surgery 2. Remove Dermabond 7 to 10 days after surgery, if there is a secondary dressing can take down after 48 hours. 3. Up and walking as tolerated 4. Do lift more than 5 pounds first 2 weeks after surgery and not more than 25 pounds 6 to 8 weeks after surgery. 5. Do not operate heavy machinery or drive while using pain medications. 6.Contact the office or return to the ER for worsening nausea vomiting fevers or chills, or noticing any redness around incision sites or discharge. Discharge Date/Time: 09/17/20 17:19 Discharge Attestations Time Spent in Discharge Care*: less than 30 min Specific Discharge Activities: Specific discharge activities: educating patient and educating and/or supporting family/caregiver Status at Discharge: Cognitive status at discharge: cognitively intact, Behavioral status at discharge: cooperative, Functional status at discharge: independent ambulation Overall status at discharge: patient is progressing back to baseline Quality Metrics Clinical Quality Measures During this hospital stay, did patient experience: None Coding Level of Care Code Acute Continuous Churn Buttermaker for Chg Fwd Diagnoses Cecum mass K63.89
[2020-09-17 17:18] VITALS: BP 108/67; PULSE 79; RESP 18; TEMP 37.1; O2SAT 96
== END 2020-09-17 17:19 | disposition home or self-care (01) | DRG 331 ==
LOC: MEDSURG 08:32
PROVIDERS: Admitting Provider Surgery; PCP Registered Nurse; Visit Provider Surgery
PROC: 0DTF4ZZ Resection of Right Large Intestine, Percutaneous Endoscopic Approach (ICD-10-PCS; CPT 44205; principal; 2020-09-13 07:00)
DX: D12.0 Benign neoplasm of cecum (principal); E87.6 Hypokalemia; E11.9 Type 2 diabetes mellitus without complications; Z79.84 Long term (current) use of oral hypoglycemic drugs; E03.9 Hypothyroidism, unspecified; K21.9 Gastro-esophageal reflux disease without esophagitis; K44.9 Diaphragmatic hernia without obstruction or gangrene; K42.9 Umbilical hernia without obstruction or gangrene
CPT/HCPCS: 12345; 36415; 36416; 80048; 82962; 85014; 85018; 88309; 96365; 96372; 96375; C9290; J0131; J0694; J0696; J1100; J1644; J1815; J2270; J2370; J2405; J2704; J2710; J3010; J3480; J3490; J7030

== ENCOUNTER 2020-09-28 10:10 | Outpatient (CLI) | payer MEDICARE, OTHER, SELFPAY ==
--- NOTE | 2020-09-29 14:19 | ONC CON_ITS ---
Dr. Jiménez New Patient Note Patient: Cindy Bates Unit #: [id number]: [id number] Dicatated By: Samara Jiménez M.D.Date of Visit: Sep 28, 2020 Onc MED New Patient/Consult Referring Physician: Dr. ANJALI NOWAK M.D. History of Present Illness: Ms. Cindy Bates, is a 70-year-old female with history of off and on diarrhea of 1 year duration, underwent colonoscopy on August 24, 2020 which showed a flat polyp 2 mm x 6 mm seen in the cecum, the polyp was not bleeding and was adenomatous and was completely excised. And final pathology report showed fragments of colonic mucosa showing high-grade dysplasia. On September 02, 2020, she underwent CT scan of abdomen pelvis which showed large polypoid mass centered in the cecum and distal terminal ileum measuring 1.8 x 1.7 cm and there is a contiguous component extending into terminal ileum measuring 4.1 x 2.3 cm. There is an adjacent biopsy clip. There is a suspicious mass also present involving distal small bowel in the right lower quadrant measuring 1.4 x 2.6 cm. And also noticed stricture in this location and there is mild proximal small bowel dilatation. An impression was suspicion for neoplasm subsequently patient underwent laparoscopic right hemicolectomy on September 13, 2020 final pathology report came back tubular adenoma with focal high-grade dysplasia, no invasive carcinoma identified, 0 out of 26 lymph node negative for malignancy. And staple line of right hemicolectomy also showed benign colonic segment no dysplasia or malignancy seen. Patient tolerated procedure well and has recovered well Denies any abdominal pain, denies any jaundice denies any melena or hematochezia denies any fever or chills denies any nausea or vomiting but has off-and-on mild diarrhea which is improving with Metamucil. Patient denies any history of smoking or alcohol use. Past Medical History: Ms. Bates's medical history consists of gastroesophageal reflux disease, hyperthyroidism, and type II diabetes. Past Surgical History: Ms. Bates's surgical/procedural history consists of carpal tunnel, colonoscopy - last colonoscopy was 2019, hemicolectomy, hemrrhoid ectomy, hysterectomy, left broken ankle repair, and tonsillectomy. Medications: Artificial Tears 1 - 4 Drop(s) (of 1 %) Solution Ophthalmic PRN, Calcium + D3 2 Tablet (of 600-200 mg - Units) Oral daily, Claritin 1 Tablet (of 10 mg) Oral daily, Glimepiride 1 Tablet (of 2 mg) Oral every am, Levothyroxine Sodium 1 Tablet (of 50 mcg) Oral daily, metFORMIN HCl 2 Tablet (of 1000 mg) Oral at bedtime, Omeprazole 1 Capsule (of 20 mg) Capsule Delayed Release Oral daily, Refresh Tears 1 - 4 Drop(s) (of 0.5 %) Solution Ophthalmic PRN Allergies: Codeine Sulfate and Prochlorperazine Maleate. Social History: Ms. Bates is and she is an unknown. Ms. Bates has never smoked. She has no history of drinking. Family History: Ms. Bates's mother at age 80: alzhiemers, and stroke, and diabetes. Ms. Bates's father at age 92: natural causes. Ms. Bates has 1 brother who is alive: diabetes. She has 1 sister who is : bone cancer. pt states she has 5 brothers and 2 sisters. pt states her sister that had bone cancer had some kind of cancerous tumor in her abdomen that was removed. pt is unsure of where or what it was. Review Of Symptoms: Review of Systems is not available for this patient. Vital Signs: Performed on Sep 28, 2020 11:07: 0, 23.53, 1.73 sq.m, 65.50 in, 99 %, 89 /min, 18 /min, 118/63 mm(hg), 99.2 F (HIGH), and 143.6 lbs (HIGH). Performance Status: 0 - Fully active, able to carry on all predisease activities without restrictions. (ECOG) Physical Examination: ENMT - No mouth sores, no thrush, no jaundice, Respiratory - Lungs are clear to auscultation, Cardiovascular - Regular rate and rhythm of heart, Abdomen - Soft, bowel sounds present, Extremities - No visible edema. Lab/Imaging: Most recent lab results are not available for this patient. Impression: Tubular adenoma with focal high-grade dysplasia status post right hemicolectomy with lymph node dissection on September 13, 2020, final pathology report confirmed tubular adenoma with focal high-grade dysplasia, no invasive carcinoma identified. And also in the staple line of the right hemicolectomy, no evidence of dysplasia or malignancy. Plan: Discussed with patient regarding her path report and patient was informed that there was no evidence of invasive carcinoma seen on her final pathology report and no further work-up or treatment is needed from oncology point of view rather observation with a follow-up colonoscopy. Case was discussed with Dr. Nowak, surgeon and who will be following her with follow-up colonoscopy and further testing if needed. As far as mild to moderate diarrhea is concerned, etiology unclear could be due to bile malabsorption as patient recently underwent right hemicolectomy but presently her diarrhea is improving with Metamucil but if persist, cholestyramine can be tried. No follow-up required but will see her on as-needed basis. Signed By: Samara Jiménez M.D. <<Signature on File>>
== END 2020-09-28 10:11 | disposition home or self-care (01) ==
LOC: ONCMED 10:13
PROVIDERS: PCP Registered Nurse; Referring Provider Surgery; Visit Provider Internal Medicine Hematology & Oncology
DX: D12.0 Benign neoplasm of cecum (principal); R19.7 Diarrhea, unspecified; Z90.49 Acquired absence of other specified parts of digestive tract
CPT/HCPCS: 99203

== ENCOUNTER 2021-01-27 13:34 | Outpatient (CLI) | payer MEDICARE, OTHER, SELFPAY | END 2021-01-27 13:35 | disposition home or self-care (01) | PROVIDERS: PCP Registered Nurse; Visit Provider Surgery | DX: R19.7 Diarrhea, unspecified (principal) | CPT/HCPCS: 83630; 87493; 87506 ==

== ENCOUNTER 2021-02-15 08:22 | Outpatient (CLI) | payer MEDICARE, OTHER, SELFPAY ==
--- NOTE | 2021-02-15 08:45 | US_ITS ---
WS: [id number] RIGHT UPPER QUADRANT ULTRASOUND HISTORY: R10.9 - Unspecified abdominal pain COMPARISON: CT 09/02/2020 Liver: 16.3 cm in length. Mildly coarsened echotexture. Heterogeneous echogenicity throughout the clemente er but no discrete nodules. Gallbladder: Normally distended gallbladder with no stones or wall thickening. CBD: 0.4 cm Pancreas: Normal size and echogenicity. Right kidney: 10.1 cm in length. Normal size and echogenicity. No hydronephrosis or mass. Aorta and IVC: Unremarkable abdominal aorta and IVC. No ascites. US/US gall bladder 42736 IMPRESSION: 1. Normal gallbladder. 2. Heterogeneous appearance of the liver. No discrete masses or bile duct dila tation is identified.
[2021-02-15 09:46] LABS: Basophils # 0.1 10^3/uL (0.0-0.1); Basophils % 2.1 %; Eosinophils # 0.2 10^3/uL (0.0-0.8); Eosinophils % 3.1 %; Hematocrit 36.3 % (37.0-47.0); Hemoglobin 11.2 g/dL (11.5-15.3); Lymphocytes # 1.5 10^3/uL (0.8-4.8); Lymphocytes % 30.7 %; Mean Corpuscular HGB Conc 30.9 g/dL (30.0-36.0); Mean Corpuscular Hemoglobin 25.4 pg (28.0-34.0); Mean Corpuscular Volume 82.3 fL (81-99); Mean Platelet Volume 9.3 fL (7.4-10.4); Monocytes # 0.4 10^3/uL (0.2-0.9); Monocytes % 9.1 %; Neutrophils # 2.66 10^3/uL (1.8-7.7); Neutrophils % 54.6 %; Nucleated Red Blood Cells % 0 %; Platelet Count 287 10^3/cmm (130-400); Red Blood Count 4.41 10^6/uL (4.1-5.3); Red Cell Distribution Width 12.6 % (12.1-15.1); White Blood Count 4.9 10^3/uL (4.0-10.0)
[2021-02-15 10:08] LABS: Estmated Average Glucose 163; Hemoglobin A1C 7.3 % (4.0-6.0)
[2021-02-15 10:40] LABS: Alanine Aminotransferase 15 U/L (0-33); Albumin Level 4.2 g/dL (3.5-5.2); Alkaline Phosphatase 84 IU/L (35-105); Anion Gap 13.5 (5-19); Aspartate Amino Transferase 18 U/L (0-32); Blood Urea Nitrogen 11 mg/dL (8-23); Calcium 9.3 mg/dL (8.5-10.5); Carbon Dioxide 28 mmol/L (22-29); Chloride 104 mmol/L (98-107); Globulin 2.5 g/dL (1.3-4.6); Glucose 156 mg/dL (65-115); Osmolality Calculated 295 mOsm/kg (285-295); Potassium 4.5 mmol/L (3.5-5.1); Sodium 141 mmol/L (136-145); Thyroid Stimulating Hormone 2.27 uIU/mL (0.27-4.20); Total Bilirubin 0.4 mg/dL (0.15-1.2); Total Protein 6.7 g/dL (6.6-8.7)
[2021-02-15 11:44] LABS: Chol HDL Ratio 4.55 mg/dL (0.0-4.40); Cholesterol 200 mg/dL (0-200); HDL Cholesterol 44 mg/dL (60-100); LDL Cholesterol Calculated 117 mg/dL (50-129); LDL HDL Ratio 2.66 RATIO (0.00-3.22); Triglycerides 194 mg/dL (0-150)
== END 2021-02-15 08:23 | disposition home or self-care (01) ==
LOC: US 08:33
PROVIDERS: PCP Registered Nurse; Referring Provider Registered Nurse; Visit Provider Surgery
DX: R10.9 Unspecified abdominal pain (principal); E11.9 Type 2 diabetes mellitus without complications; E78.5 Hyperlipidemia, unspecified
CPT/HCPCS: 36415; 76705; 80053; 80061; 83036; 84443; 85025

== ENCOUNTER → 2021-08-10 09:09 | Outpatient (BNVA) | payer MEDICARE, OTHER, SELFPAY | PROVIDERS: PCP Registered Nurse; Visit Provider Surgery | DX: Z20.822 Contact with and (suspected) exposure to COVID-19 (principal) | CPT/HCPCS: 87635 ==

== ENCOUNTER 2021-08-16 08:58 | Day surgery (SDC) | payer MEDICARE, OTHER, SELFPAY ==
[2021-08-14 09:00] VITALS: BMI 25.0
--- NOTE | 2021-08-16 09:49 | P.ANESASSM_ITS ---
Pre-Anesthetic Assessment Pre-Anesthetic Assessment: Height/Weight: Height 1.65 m Weight 68.039 kg Preop Diagnosis: History of cecal polyp and change in bowel habits Proposed Procedure: Operation Date: 08/16/21 10:30 Proposed Procedures p Colonoscopy 36527 z86.010(Not Applicable) - Jn Nowak MD Was Beta Glenn taken within 24 hours: N/A Was Clonidine taken within 24 hours: N/A Social: Social History: No alcohol and No tobacco Exam: Pre-Anes Outpt Exam: alert, oriented x 3, clear to auscultation bilaterally and regular rate & rhythm Airway: Submandibular: WNL Cervical ROM: WNL MP: 2 Dentition: Full CV/HEM: CV/HEM: Anemia GI: GI: GERD Metabolic: Metabolic: Thyroid Anesthetic Plan: ASA status: 3 Anesthesia: MAC Risk of > 500 ml blood loss (7ml/kg in children): No PFSH Anesthesia PFSH: Medical History Cecal polyp Change in bowel habit Postop check Family History Denies family history of Anesthesia complication Bleeding disorder Social History Smoking and tobacco status: never smoked Alcohol intake: never Lives independently: Yes Household members: spouse Marital status: Current occupational status: retired History of recent travel: No Sexually active: No Current gender identity: Female Fawn/Jewish: Synagogue Data Anesthesia Cardiac Studies: No Data to Display
[2021-08-16 10:03] VITALS: BP 121/73; PULSE 80; RESP 18; TEMP 36.2; O2SAT 97
[2021-08-16] MEDS: sodium chloride 0.9% 1,000 ML 30 ML IV (10:11)
[2021-08-16 10:14] LABS: Glucose Point of Care 219 mg/dL (70-110)
--- NOTE | 2021-08-16 11:18 | W.PM.OPSFHP ---
Same Day Surgery H&P Indication for Procedure/HPI DATE OF PROCEDURE: August 16, 2021 CHIEF COMPLAINT/INDICATIONFOR SURGICAL PROCEDURE: Change in bowel habit PREOP DIAGNOSIS: History of cecal polyp and change in bowel habits PLANNED PROCEDRUE: Operation Date: 08/16/21 10:30 Proposed Procedures p Colonoscopy 96241 z86.010(Not Applicable) - Jn Nowak MD Patient comes today status post right hemicolectomy back in August 2020 and pathology at that time did show; Final Diagnosis A. Colon, cecal mass , right hemicolectomy: ?Tubular adenoma with focal high-grade dysplasia. ?No invasive carcinoma identified. ?26 lymph nodes examined, negative for malignancy (0/26). D. Colon, staple line of right hemicolectomy , excision: ?Benign colonic segment. ?No dysplasia or malignancy identified. Continues to have loose stools and she also complains of a bulge of her center of her abdomen. She denies any bleeding per rectum. Previous stool studies were done back in January 2021 and all came back negative Interim history 08/16/2021 Patient comes today for surveillance colonoscopy ROS All systems have been reviewed negative except as per the above or per problem list Medications/Allergies* Home Medications Medication Instructions Recorded Confirmed Type calcium carbonate 600 mg calcium 1,200 mg PO DAILY tab 08/03/20 08/16/21 History (1,500 mg) tablet glimepiride 2 mg tablet 2 mg PO DAILY 08/03/20 08/16/21 History levothyroxine 50 mcg capsule 50 mcg PO DAILY 08/03/20 08/16/21 History loratadine 10 mg capsule 10 mg PO DAILY 08/03/20 08/16/21 History omeprazole 20 mg capsule,delayed 20 mg PO BID 08/03/20 08/16/21 History release Allergies/Adverse Reactions Allergy/AdvReac Type Severity Reaction Status Date / Time codeine Allergy Unknown Verified 06/17/21 16:31 prochlorperazine Allergy Unknown Verified 06/17/21 16:31 [From Compazine] Current Medications: Generic Name Dose Route Start Last Admin Trade Name Freq PRN Reason Stop Dose Admin Sodium Chloride 1,000 mls @ 30 mls/hr 08/16/21 09:15 08/16/21 10:11 Sodium Chloride 0.9% IV 08/17/21 09:14 30 mls/hr .Q24H JULIA Administration Pertinent History/Comorbid Conditions* Medical History (Updated 03/04/21 @ 08:12 by Jn Nowak MD) Cecal polyp Change in bowel habit Postop check Family History (Updated 08/08/20 @ 08:32 by Belen Levi RN) Denies family history of Anesthesia complication Bleeding disorder Social History Smoking and tobacco status: never smoked Alcohol intake: never Lives independently: Yes Household members: spouse Marital status: Current occupational status: retired History of recent travel: No Sexually active: No Current gender identity: Female Fa[place]/Ad[employer]: [employer]ism Pertinent Exam Findings alert, oriented x 3, clear to auscultation bilaterally, regular rate & rhythm and procedure specific exam findings (Abdominal examination nontender nondistended soft) Recommendations Surgery/Procedure today (Colonoscopy with possible biopsy) Other Plans: Plan of care; After thorough history and physical examination and reviewing the chart, plan to perform surveillance colonoscopy. I discussed with the patient in details the risks,benefits,alternatives and indications.The risk of aspiration, bleeding, soft tissue injury, perforation of the colon and other potential concomitant complications were explained to the patient in details,also the potential need for Laproscoy/Laparotomy to repair any related complications including but not limited to colectomy and or Closotomy.The patient understood this well and did agree to proceed. Rationale was carefully and clearly discussed with the patient.Appropriate informed consent have been reviewed and signed All questions have been answered and all concerns have been addressed to patient's satisfaction. Verbal and written Instructions were given to the patient for colonoscopy prep Coding Level of Care Code Acute Hotel Front Desk Clerk for Niraj Oliver
[2021-08-16 11:41] VITALS: BP 106/63; PULSE 77; RESP 16; TEMP 36.1; O2SAT 97
[2021-08-16 11:54] VITALS: BP 107/67; PULSE 78; RESP 18; O2SAT 94
--- NOTE | 2021-08-16 13:55 | ANE.PACU2 ---
Inpatient post-anesthesia follow up: Airway intact: Yes Vital signs: Temperature 97.0 F Pulse Rate 78 Respiratory Rate 18 Blood Pressure 107/67 Pulse Oximetry 94 Oxygen Delivery Me thod Room Air Oxygen Flow Rate Fraction of Inspir ed Oxygen Hydration adequate: Yes Nausea and vomiting: No Pain level: 1 Mental status: Baseline
== END 2021-08-16 12:13 | disposition home or self-care (01) ==
PROVIDERS: PCP Registered Nurse; Visit Provider Surgery
PROC: 0DJD8ZZ Inspection of Lower Intestinal Tract, Via Natural or Artificial Opening Endoscopic (ICD-10-PCS; CPT 45378; principal; 2021-08-16 10:30)
DX: R19.4 Change in bowel habit (principal); Z86.010 Personal history of colon polyps; Z90.49 Acquired absence of other specified parts of digestive tract; K63.89 Other specified diseases of intestine; K21.9 Gastro-esophageal reflux disease without esophagitis
CPT/HCPCS: 36416; 45378; 82962; 96360; 96361; J2704; J7030

== ENCOUNTER 2021-09-14 08:33 | Outpatient (CLI) | payer MEDICARE, OTHER, SELFPAY ==
--- NOTE | 2021-09-14 10:00 | NM_ITS ---
WS: [id number] NUCLEAR MEDICINE HIDA SCAN CLINICAL INFORMATION: R10.9 - Unspecified abdominal pain TECHNIQUE: Following intravenous administration of 5.8 mCi of technetium 99m mebrofenin, images of th e abdomen were obtained over the course of 60 minutes. Next, gallbladder ejection fraction was determ ined by obtaining preprandial and one-hour postprandial images of the gallbladder following oral petey stion of Ensure. COMPARISON: Ultrasound February 15, 2021 FINDINGS: Normal hepatic uptake at 5 minutes. Normal hepatic excretion. No evidence of acute cholecystitis. Gal lbladder is visualized by 10 minutes. Normal common bile duct and small bowel activity. Gallbladder ejection fraction 77% within normal limits. No evidence of chronic cholecystitis. NM/NM hepatobiliary w phar* [id number] IMPRESSION: 1. No evidence of acute or chronic cholecystitis. 2. Normal gallbladder ejection fraction 77% within normal limits.
== END 2021-09-14 08:34 | disposition home or self-care (01) ==
LOC: NM 08:34
PROVIDERS: PCP Family Medicine; Visit Provider Surgery
DX: R10.9 Unspecified abdominal pain (principal)
CPT/HCPCS: 78227; A9537

== ENCOUNTER → 2022-07-25 15:31 | Outpatient (BNVA) | payer MEDICARE, OTHER, SELFPAY | PROVIDERS: PCP Family Medicine; Visit Provider Surgery | DX: K52.9 Noninfective gastroenteritis and colitis, unspecified (principal); Z90.49 Acquired absence of other specified parts of digestive tract; R19.4 Change in bowel habit | CPT/HCPCS: 99213 ==

== ENCOUNTER 2022-09-20 07:11 | Day surgery (SDC) | payer MEDICARE, OTHER, SELFPAY ==
[2022-09-18 10:47] VITALS: BMI 24.4
[2022-09-20 07:31] VITALS: BP 132/78; PULSE 102; RESP 18; TEMP 36.7; O2SAT 96
[2022-09-20] MEDS: sodium chloride 0.9% 1,000 ML 30 ML IV (07:38)
[2022-09-20 07:47] LABS: Glucose Point of Care 201 mg/dL (70-110)
--- NOTE | 2022-09-20 07:51 | P.HP_ITS ---
Same Day Surgery H&P Indication for Procedure/HPI DATE OF PROCEDURE: September 20, 2022 CHIEF COMPLAINT/INDICATIONFOR SURGICAL PROCEDURE: Loose stool PREOP DIAGNOSIS: Chronic diarrhea PLANNED PROCEDURE: Operation Date: 09/20/22 08:00 Proposed Procedures p EGD and colonoscopy [id number],R19.4,Z90.49(Not Applicable) - Jn Nowak MD s Colonoscopy(Not Applicable) - Jn Nowak MD 07/25/2022 This is a pleasant 72 years old female patient undergone uneventful laparoscopic right hemicolectomy back in August 2020 and the pathology did reveal; A.? Colon, cecal mass , right hemicolectomy: ?Tubular adenoma with focal high-grade dysplasia. ?No invasive carcinoma identified. ?26 lymph nodes examined, negative for malignancy (0/). D.? Colon, staple line of right hemicolectomy , excision: ?Benign colonic segment. ?No dysplasia or malignancy identified. Patient undergone surveillance colonoscopy back in July 2022 and did show normal findings and she comes today with chronic history of diarrhea which is not clear what causing that except that she had ileocolic anastomosis and likely running stool would be expected for certain time then she would to have a normal bowel movements again.? But patient seems to have looser stools all the time.? Her stool was started in different occasions and everything came back negative. Patient reports history of diarrhea, nonbloody in nature, has been going on for quite some time.? Patient denies history of recent travels, antibiotics, change in medications, questionable source of water, no history of sick contacts, no history of thyroid disorders. 09/20/2022 Patient comes today for diagnostic EGD and colonoscopy ROS All systems have been reviewed negative except as for the above or per problem list. Medications/Allergies* Home Medications Medication Instructions Recorded Confirmed Type calcium carbonate 600 mg calcium 1,200 mg PO DAILY 08/03/20 09/18/22 History (1,500 mg) tablet glimepiride 2 mg tablet 2 mg PO DAILY 08/03/20 09/18/22 History levothyroxine 50 mcg capsule 50 mcg PO DAILY 08/03/20 09/18/22 History loratadine 10 mg capsule (Claritin 10 mg PO DAILY 08/03/20 09/18/22 History Liqui-Gel) omeprazole 20 mg capsule,delayed 20 mg PO BID 08/03/20 09/18/22 History release sitagliptin 100 mg tablet (Januvia) 100 mg PO DAILY 09/18/22 09/18/22 History Allergies/Adverse Reactions Allergy/AdvReac Type Severity Reaction Status Date / Time codeine Allergy Unknown Verified 07/27/22 17:11 prochlorperazine Allergy Unknown Verified 07/27/22 17:11 [From Compazine] Current Medications: Generic Name Dose Route Start Last Admin Trade Name Elli PRN Reason Stop Dose Admin Sodium Chloride 1,000 mls @ 30 mls/hr 09/20/22 07:30 09/20/22 07:38 Sodium Chloride 0.9% IV 30 mls/hr .Q24H JULIA Administration Pertinent History/Comorbid Conditions* Medical History (Updated 07/27/22 @ 17:12 by Jn Nowak MD) Cecal polyp Change in bowel habit Chronic diarrhea Postop check Surgical History (Updated 08/24/21 @ 08:47 by Jn Nowak MD) Status post right hemicolectomy Family History (Updated 08/08/20 @ 08:32 by Belen Levi RN) Denies family history of Anesthesia complication Bleeding disorder Social History Smoking and tobacco status: never smoked Alcohol intake: never Lives independently: Yes Household members: spouse Marital status: Current occupational status: retired History of recent travel: No Sexually active: No Current gender identity: Female Fawn/Hoahaoism: Caodaism Pertinent Exam Findings alert, oriented x 3, regular rate & rhythm and procedure specific exam findings (Abdominal exam nontender nondistended soft) Recommendations Surgery/Procedure today (EGD and colonoscopy) Coding Level of Care Code Acute Chemistry Laboratory Technician for Niraj Oliver
--- NOTE | 2022-09-20 07:57 | P.ANESASSM_ITS ---
Pre-Anesthetic Assessment Height/Weight: Height 1.65 m Weight 66.678 kg Temp Pulse Resp BP Pulse Ox O2 Del Method 98.1 F 102 H 18 132/78 96 09/20/22 07:31 09/20/22 07:31 09/20/22 07:31 09/20/22 07:31 09/20/22 07:31 09/20/22 07:31 Preop Diagnosis: Chronic diarrhea Operation Date: 09/20/22 08:00 Proposed Procedures p EGD and colonoscopy [id number],R19.4,Z90.49(Not Applicable) - Jn Nowak MD s Colonoscopy(Not Applicable) - Jn Nowak MD Was Beta Glenn taken within 24 hours: N/A Was Clonidine taken within 24 hours: N/A Last intake: Intake Last Liquid Date 09/19/22 Last Liquid Time 23:59 Last Solid Date 09/18/22 Last Solid Time 19:00 Social No alcohol and No tobacco Exam alert, oriented x 3, clear to auscultation bilaterally and regular rate & rhythm Airway Submandibular: within normal limits Cervical ROM: within normal limits Mallampati: Class II Dentition: full History/ROS No significant history except as noted and No significant complaints Pulmonary None reported CV/HEM None reported None reported Hepatic None reported GI Gastroesophageal Reflux Disease Metabolic Diabetes Mellitus and Thyroid Disease [facility] None reported Anesthetic Plan ASA status: 3 Anesthesia: Anesthesia Evaluation and MAC Risk of > 500 ml blood loss (7ml/kg in children): No Medications/Allergies Home Medications Medication Instructions Recorded Confirmed Last Taken Type calcium carbonate 600 mg calcium 1,200 mg PO DAILY 08/03/20 09/18/22 09/19/22 History (1,500 mg) tablet glimepiride 2 mg tablet 2 mg PO DAILY 08/03/20 09/18/22 09/19/22 History levothyroxine 50 mcg capsule 50 mcg PO DAILY 08/03/20 09/18/22 09/19/22 History loratadine 10 mg capsule (Claritin 10 mg PO DAILY 08/03/20 09/18/22 09/19/22 Hi story Liqui-Gel) omeprazole 20 mg capsule,delayed 20 mg PO BID 08/03/20 09/18/22 09/19/22 History release sitagliptin 100 mg tablet (Januvia) 100 mg PO DAILY 09/18/22 09/18/22 09/19/22 History Allergies Allergy/AdvReac Type Severity Reaction Status Date / Time codeine Allergy Unknown Verified 07/27/22 17:11 prochlorperazine Allergy Unknown Verified 07/27/22 17:11 [From Compazine] Current Medications Generic Name Dose Route Start Last Admin Trade Name Freq PRN Reason Stop Dose Admin Sodium Chloride 1,000 mls @ 30 mls/hr 09/20/22 07:30 09/20/22 07:38 Sodium Chloride 0.9% IV 30 mls/hr .Q24H JULIA Administration PFSH Anesthesia Medical History Cecal polyp Change in bowel habit Chronic diarrhea Postop check Surgical History Status post right hemicolectomy Family History Denies family history of Anesthesia complication Bleeding disorder Social History Smoking and tobacco status: never smoked Alcohol intake: never Lives independently: Yes Household members: spouse Marital status: Current occupational status: retired History of recent travel: No Sexually active: No Current gender identity: Female Fawn/Latter-Day: Jew Data Anesthesia Cardiac Studies: No Data to Display
[2022-09-20 08:33] VITALS: BP 115/72; PULSE 86; RESP 16; TEMP 36.1; O2SAT 94
[2022-09-20 08:47] VITALS: BP 129/64; PULSE 75; RESP 18; O2SAT 95
== END 2022-09-20 09:05 | disposition home or self-care (01) ==
PROVIDERS: PCP Family Medicine; Visit Provider Surgery
PROC: 0DJ08ZZ Inspection of Upper Intestinal Tract, Via Natural or Artificial Opening Endoscopic (ICD-10-PCS; CPT 43235; principal; 2022-09-20 08:00)
PROC: 0DJD8ZZ Inspection of Lower Intestinal Tract, Via Natural or Artificial Opening Endoscopic (ICD-10-PCS; CPT 45378; 2022-09-20 08:00)
DX: R19.4 Change in bowel habit (principal); Z90.49 Acquired absence of other specified parts of digestive tract; K29.50 Unspecified chronic gastritis without bleeding; K29.80 Duodenitis without bleeding; K21.9 Gastro-esophageal reflux disease without esophagitis; E11.9 Type 2 diabetes mellitus without complications
CPT/HCPCS: 36416; 43239; 45378; 82274; 82962; 83630; 87493; 87506; 88305; 88342; J2704; J7030

== ENCOUNTER → 2022-10-04 15:49 | Outpatient (BNVA) | payer MEDICARE, OTHER, SELFPAY | PROVIDERS: PCP Family Medicine; Visit Provider Surgery | DX: Z09 Encounter for follow-up examination after completed treatment for conditions other than malignant neoplasm (principal); K52.9 Noninfective gastroenteritis and colitis, unspecified | CPT/HCPCS: 99212 ==

== ENCOUNTER 2022-12-17 08:08 | Outpatient (CLI) | payer MEDICARE, OTHER, SELFPAY ==
--- NOTE | 2022-12-17 08:30 | FL_ITS ---
WS: [id number] Exam: FL small bowel series* [id number] Date/Time of Exam: 12/17/2022 8:16 AM Reason For Exam: Fluoroscopy time: 0min [id number] minutes # of spot films: 2 Pulmonary survey of the abdomen shows surgical clips in the right lower quadrant. Moderate amount of stool in the transverse colon. Barium courses through the duodenum, jejunum and ileum without obstruction. The mucosal pattern is un remarkable. No sign of bowel loop herniation or displacement. Barium is noted in the cecum at 1 hour indicating essentially normal transit time. Limited images of the stomach were unremarkable. Spot milo ges of the terminal ileum demonstrated no significant abnormal finding. FL/FL small bowel series* [id number] IMPRESSION: 1. Unremarkable small bowel follow-through.
== END 2022-12-17 08:09 | disposition home or self-care (01) ==
LOC: RAD 08:09
PROVIDERS: PCP Family Medicine; Visit Provider Surgery
DX: K52.9 Noninfective gastroenteritis and colitis, unspecified (principal)
CPT/HCPCS: 74250

== ENCOUNTER 2024-09-25 13:40 | Outpatient (CLI) | payer MEDICARE, OTHER, SELFPAY ==
--- NOTE | 2024-09-25 13:42 | XR_ITS ---
WS: [id number] SCREENING DEXA SCAN [employer] ([employer]) CLINICAL INFORMATION: POSTMENOPAUSAL COMPARISON: None. FINDINGS: The L1-L4 bone mineral density measures 1.028 g/cm2. This corresponds to a T score score of -1.3 and Z score of 0.6. Left femoral neck bone mineral density measures 0.724 g/cm2. This corresponds to a T score of -2.3 an d Z score of -0.4. Right femoral neck bone mineral density measures 0.736 g/cm2. This corresponds to a T score -2.2of an d Z score of -0.3. Mean femoral neck bone mineral density measures 0.730 g/cm2. This corresponds to a T score of -2.2 an d Z score of -0.3. XR/XR DEXA axial skeleton* [id number] IMPRESSION: Osteopenia lumbar spine. Osteopenia femoral necks. Patient's FRAX calculated 10 year probability for major osteoporotic fracture i s 15.0% and osteoporotic hip fracture is 4.6%.
== END 2024-09-25 13:41 | disposition home or self-care (01) ==
LOC: RAD 13:41
PROVIDERS: PCP Family Medicine; Visit Provider Nurse Practitioner Family
DX: Z13.820 Encounter for screening for osteoporosis (principal); M85.80 Other specified disorders of bone density and structure, unspecified site; Z78.0 Asymptomatic menopausal state
CPT/HCPCS: 77080